=== PATIENT | male | born 1970 | race Caucasian/White ===

== ENCOUNTER 2018-07-13 23:36 | Emergency (ER) | payer OTHER ==
[2018-07-13] MEDS ORDERED: NS 1,000 ML IV ONE (23:46)
[2018-07-13] MEDS ORDERED: ONDANSETRON 4 MG/2 ML VIAL IVP ONE (23:46)
--- NOTE | 2018-07-14 00:13 | EDPHY ---
H & P Stated Complaint: etoh-fall Time Seen by Provider: 07/13/18 23:37 HPI/ROS: Chief Complaint: Syncope HPI: 48-year-old male with a history of intermittent atrial fibrillation was out drinking with friends tonight. Patient had multiple alcoholic drinks. Patient had an episode of syncope after standing up while at the bar. He was gently lowered to the ground. No chest pain or shortness of breath. No palpitations. Patient was incontinent of urine. Currently without complaint. ROS: 10 systems were reviewed and were negative except those elements noted in the HPI. PMH: Atrial fibrillation Social History: No smoking, occasional alcohol Family History: non-contributory Physical Exam: Gen: Awake, Alert, slurred speech HEENT: Nose: no rhinorrhea Eyes: PERRLA, EOMI Mouth: Moist mucosa Neck: Supple, no JVD Chest: nontender, lungs clear to auscultation Heart: S1, S2 normal, no murmur Abd: Soft, non-tender, no guarding Back: no CVA tenderness, no midline tenderness Ext: no edema, non-tender Skin: no rash Neuro: CN II-XII intact, Sensation grossly intact, Strength 5/5 in bilateral upper and lower extremities - Personal History Current Tetanus Diphtheria and Acellular Pertussis (TDAP): Yes - Medical/Surgical History Hx Asthma: No Hx Chronic Respiratory Disease: No Hx Diabetes: No Hx Cardiac Disease: Yes Hx Renal Disease: No Hx Cirrhosis: No Hx Alcoholism: No Hx HIV/AIDS: No Hx Splenectomy or Spleen Trauma: No Other PMH: afib, gout - Social History Smoking Status: Never smoked Constitutional: Initial Vital Signs Temperature (C) 36.6 C 07/13/18 23:41 Heart Rate 79 07/13/18 23:41 Respiratory Rate 16 07/13/18 23:41 Blood Pressure 121/57 H 07/13/18 23:41 O2 Sat (%) 97 07/13/18 23:41 O2 Delivery Mode Room Air Allergies/Adverse Reactions: No Known Allergies Allergy (Unverified 07/13/18 23:40) Home Medications: Medication Instructions Recorded Allopurinol [Allopurinol 100 MG 100 mg PO DAILY 12/22/12 (RX)] Cardizem 07/13/18 Losartan Potassium 07/13/18 Medical Decision Making - Diagnostics EKG Interpretation: ECG time 11:52 p.m., sinus rhythm with a rate of 75, normal axis, normal intervals, no acute ST or T-wave changes. Impression: Normal ECG. ED Course/Re-evaluation: 48-year-old male with history of intermittent atrial fibrillation had a syncopal event after drinking multiple alcoholic drinks. He is in sinus rhythm now. He is currently without complaint. Vital signs are normal. Symptoms consistent with his intoxication. He is here with a sober friend. Will be able to discharge with follow-up as an outpatient. - Data Points Medications Given: Discontinued Medications Sodium Chloride (Ns) 1,000 mls @ 0 mls/hr IV ONCE ONE; Wide Open PRN Reason: Protocol Stop: 07/13/18 23:47 Last Admin: 07/13/18 23:51 Dose: 1,000 mls Ondansetron HCl (Zofran) 4 mg IVP EDNOW ONE Stop: 07/13/18 23:47 Last Admin: 07/13/18 23:52 Dose: 4 mg Departure - Departure Disposition: Home, Routine, Self-Care Clinical Impression: Syncope Condition: Fair Instructions: Syncope (ED) Additional Instructions: Follow up with aircraft worker in 3-4 days. Return to the emergency department for further episodes of fainting, chest pain , shortness of breath, palpitations, or any other concerns. Referrals: Patient,NotPresent [Primary Care Provider] - As per Instructions
[2018-07-14 01:08] VITALS: BP 119/64
== END 2018-07-14 01:06 | disposition home or self-care (01) ==
LOC: EDUNIT#
DX: R55 Syncope and collapse (principal); E86.9 Volume depletion, unspecified
CPT/HCPCS: 96374; J2405